=== PATIENT | female | born 1995 | race African-American/Black ===

== ENCOUNTER 2016-10-09 16:06 | Emergency (ER) | payer OTHER ==
[~2016-10-09] VITALS: Ht 160 cm; Wt 63.5 kg
[2016-10-09 16:06] VITALS: BP 114/47
[2016-10-09] MEDS ORDERED: LIDOCAINE 1%-EPI 1:100,000 20 ML VIAL TP ONE (17:00)
[2016-10-09] MEDS ORDERED: IBUPROFEN 600 MG TABLET PO ONE ×2 (17:00→17:11)
== END 2016-10-09 18:14 | disposition home or self-care (01) ==
LOC: ER 16:09
DX: S01.111A Laceration without foreign body of right eyelid and periocular area, initial encounter (principal); F17.200 Nicotine dependence, unspecified, uncomplicated; Z91.018 Allergy to other foods; W22.8XXA Striking against or struck by other objects, initial encounter; Y93.89 Activity, other specified; Y92.89 Other specified places as the place of occurrence of the external cause; Y99.0 Civilian activity done for income or pay
CPT/HCPCS: 12015; 99283; A4606; A6402; Z7610

== ENCOUNTER → 2016-10-16 | Emergency (ER) | payer OTHER ==
[~2016-10-16] VITALS: Ht 160 cm; Wt 63.5 kg
[2016-10-16 15:53] VITALS: BP 123/61
== END | disposition home or self-care (01) ==
LOC: ER 15:53
DX: S05.31XD Ocular laceration without prolapse or loss of intraocular tissue, right eye, subsequent encounter (principal); X58.XXXD Exposure to other specified factors, subsequent encounter; F17.200 Nicotine dependence, unspecified, uncomplicated; Z91.018 Allergy to other foods
CPT/HCPCS: 99282; A4606; Z7610